=== PATIENT | male | born 1940 | race Caucasian/White ===

== ENCOUNTER → 2016-09-15 | Outpatient (CLI) | payer MEDICARE, OTHER | END | disposition home or self-care (01) | LOC: LAB.O 09:55 → RESP 10:13 | PROVIDERS: ATTEND Orthopaedic Surgery | DX: Z01.818 Encounter for other preprocedural examination (principal) ==

== ENCOUNTER → 2016-10-03 | Outpatient (CLI) | payer MEDICARE, OTHER ==
--- NOTE | 2016-10-03 10:05 | RAD ---
Four view left knee. Indication: KNEE PAIN Comparison: None. Impression: Advanced-severe medial compartment osteoarthritis with [id number] appearance and significant cortical remodeling. Less pronounced moderate to severe changes lateral compartment and moderate changes patellofemoral compartment. Small knee effusion. Osteopenia. If this is a new finding, DEXA scan recommended as well as evaluation for possible osteoporosis treatment. No acute fracture or malalignment. Electronically signed by: Pieter Naik MD 10/03/2016 10:04 AM CDT
--- NOTE | 2016-10-03 10:07 | RAD ---
EXAM DESCRIPTION: Pelvis CLINICAL HISTORY: BI LAT HIP PAIN COMPARISON: None. TECHNIQUE: AP pelvis FINDINGS: Surgical clips are observed centrally in the pelvis. Loss of joint space is observed in the left hip. Mild acetabular osteophyte formation is observed. No pelvic fracturing is observed. Minimal loss of joint space is observed in the right hip. IMPRESSION: Mild degenerative changes are observed in both hips slightly more pronounced on the left. Electronically signed by: Wayne Delvalle MD 10/03/2016 10:06 AM CDT
== END | disposition home or self-care (01) ==
LOC: RAD 08:31
PROVIDERS: ATTEND Orthopaedic Surgery
DX: M17.12 Unilateral primary osteoarthritis, left knee (principal); M16.0 Bilateral primary osteoarthritis of hip

== ENCOUNTER 2016-11-16 05:52 | Inpatient (IN) | payer MEDICARE, OTHER ==
--- NOTE | 2016-10-03 10:20 | HP ---
CHIEF COMPLAINT: Left knee pain. HISTORY OF PRESENT ILLNESS: Tom is a 75-year-old male with a history of pain in the knees bilaterally. He has had right total knee replacement. He has continued to have pain on the left side and now has exhausted conservative measures. Because of his ongoing pain, he has requested operative intervention. His pain has gotten to the point where it causes him pain on a daily basis and interferes with activities. After discussing the risks, benefits and alternatives to operative therapy, the patient has given informed consent. PAST SURGICAL HISTORY: 1. Colon surgery. 2. Right total knee replacement. MEDICATIONS: 1. Tamsulosin. 2. Simvastatin. 3. Centrum. ALLERGIES: NO KNOWN DRUG ALLERGIES. CODE STATUS: Full code. IMMUNIZATIONS: Up to date. SOCIAL HISTORY: The patient does not drink, smoke or use any illicit drugs. FAMILY HISTORY: None pertinent to today's complaint. REVIEW OF SYSTEMS: Negative except as indicated in the History of Present Illness. PHYSICAL EXAMINATION: VITAL SIGNS: Blood pressure 150/81. Pulse 85. Height 5'11". Weight 216. MENTAL STATUS: The patient is awake, alert, and is able to give a good history and participate in the physical. The patient is oriented to person, place and time. SKIN: Normal tone and turgor. HEENT: Normocephalic, atraumatic. Pupils equal, round and reactive. Mucosal membranes are moist. NECK: Normal range of motion. No thyromegaly, no lymphadenopathy. CHEST: Normal respiratory excursion. CARDIAC: Regular rate and rhythm. No murmurs, rubs or gallops. MUSCULOSKELETAL: The bilateral upper extremities show active range of motion without pain. Sensation is intact and they extremities are warm and well perfused. Strength is 5/5. Right knee shows a well-healed scar anteriorly. He has no varus/valgus or anterior/posterior laxity. Sensation intact. It is warm and well perfused. The left lower extremity shows full range of motion of the hip. Range of motion of the knee is from full extension with flexion to about 120 degrees. He has no varus/valgus or anterior/posterior laxity. He does seem to have slight varus deformity to the knee. Strength is 5/5. Sensation is intact. It is warm and well perfused. ASSESSMENT: 1. Osteoarthritis of the left knee. PLAN: The plan at this point is for total knee arthroplasty. We have discussed the risks, benefits, and alternatives to that and the patient has given informed consent. #[id number] [facility]
--- NOTE | 2016-11-12 12:20 | HP ---
CHIEF COMPLAINT: Left knee pain. HISTORY OF PRESENT ILLNESS: Tom is a 74 year-old male with a history of severe pain in the knee. The pain has been refractory to conservative measures and is affecting his daily life. Because of his ongoing pain and daily function , he has requested operative intervention. After discussing the risks, benefits , and alternatives to operative intervention, he has given informed consent for total knee arthroplasty. PAST SURGICAL HISTORY: 1. Total knee arthroplasty. 2. Colectomy. CURRENT MEDICATIONS: 1. Tamsulosin. 2. Simvastatin. 3. Vitamins. ALLERGIES: NO KNOWN DRUG ALLERGIES. CODE STATUS: FULL CODE. IMMUNIZATIONS: Up to date. FAMILY HISTORY: None pertinent to today's complaints. SOCIAL HISTORY: He does not drink, smoke or use any illicit drugs. REVIEW OF SYSTEMS: Negative except as indicated in the History of Present Illness. PHYSICAL EXAMINATION: VITAL SIGNS: Blood pressure 150/78, pulse 80, height 5' 11", weight 215. MENTAL STATUS: The patient is awake, alert, and is able to give a good history and participate in the physical. The patient is oriented to person, place and time. SKIN: Normal tone and turgor. HEENT: Normocephalic, atraumatic. Pupils equal, round and reactive. Mucosal membranes are moist. NECK: Normal range of motion. No thyromegaly, no lymphadenopathy. CHEST: Normal respiratory excursion. CARDIAC: Regular rate and rhythm. No murmurs, rubs or gallops. MUSCULOSKELETAL: The bilateral upper extremities show full active range of motion without significant pain. The extremities are warm and well perfused. There is no deformity and there is no crepitus. The right lower extremity shows a well healed wound on the anterior aspect of the knee. He has retained range of motion in the hip. Range of motion in the knee is from full extension to 120 degrees of flexion. There is no varus, valgus, anterior or posterior laxity. The left lower extremity shows lack of extension to about 5 degrees in the knee with crepitus and pain throughout his arc which includes flexion arc of about 110 degrees. There is no varus, valgus, anterior or posterior laxity. Strength is 5/5 and it is warm and well perfused. He has a slight varus deformity. X-RAYS: X-rays show severe arthritis. ASSESSMENT: 1. Arthritis of the knee. PLAN: The plan at this point is for total knee arthroplasty. We have discussed the risks, benefits, and alternatives to that and he has given informed consent for that. #[id number] [facility]
[2016-11-16] MEDS ORDERED: LACTATED RINGERS 1,000 ML ONE ×2 (05:55→06:11)
[2016-11-16] MEDS ORDERED: SODIUM CHL 0.9% 100ML MINI-BAG 100 ML IVPB ONE ×3 (05:55→07:33)
[2016-11-16] MEDS ORDERED: TRANEXAMIC ACID 1,000 MG/10 ML VIAL ONE ×2 (05:56→05:57)
[2016-11-16] MEDS ORDERED: ceFAZolin SODIUM 1 GM VIAL ONE ×4 (05:56→20:43)
[2016-11-16] MEDS ORDERED: VANCOMYCIN HCL INJ 1,000 MG VIAL IVPB ONE ×4 (05:56→18:12)
[2016-11-16] MEDS ORDERED: SODIUM CHLORIDE 0.9% 250ML 250 ML ONE ×2 (05:57→18:11)
[2016-11-16] MEDS ORDERED: MORPHINE SULF *EPIDURAL* 1 MG/ML VIAL ONE (06:10)
[2016-11-16] MEDS ORDERED: fentaNYL CITRATE INJ 50 MCG/ML AMP ONE (06:10)
[2016-11-16] MEDS ORDERED: MIDAZOLAM INJ 5 MG/5 ML VIAL ONE (06:11)
[2016-11-16] MEDS ORDERED: LIDOCAINE 2 % GEL 5 ML TUBE TOP ONE (06:11)
[2016-11-16] MEDS: ceFAZolin SODIUM 1 GM VIAL ONE ×2 (07:46→08:42)
[2016-11-16] MEDS: VANCOMYCIN HCL INJ 1,000 MG VIAL IVPB ONE ×2 (07:47→08:42)
[2016-11-16] MEDS: BUPIVACAINE 0.25% W/EPI 50 ML VIAL INJ ONE ×2 (07:47→09:10)
[2016-11-16] MEDS ORDERED: BENZOCAINE-MENTH LOZ (CEPACOL) 1 EA LOZ MT PRN (09:25)
[2016-11-16] MEDS ORDERED: MORPHINE SULFATE INJ 10 MG/ML VIAL IV PRN (09:25)
[2016-11-16] MEDS ORDERED: BISACODYL SUPPOSITORY 10 MG PR PRN (09:25)
[2016-11-16] MEDS ORDERED: TRANEXAMIC ACID INJ 1,000 MG in SODIUM CHLORIDE 0.9% 100ML 100 ML IVPB ONE (09:25)
[2016-11-16] MEDS ORDERED: PROMETHAZINE HCL INJ 12.5 MG in SODIUM CHLORIDE 0.9% 50ML 50 ML IVPB PRN (09:25)
[2016-11-16] MEDS ORDERED: PROMETHAZINE HCL INJ 25 MG in SODIUM CHLORIDE 0.9% 50ML 50 ML IVPB PRN (09:25)
[2016-11-16] MEDS ORDERED: MORPHINE SULFATE INJ 10 MG/ML VIAL IM PRN (09:25)
[2016-11-16] MEDS ORDERED: NALOXONE HCL INJ 0.4 MG/ML VIAL IV PRN (09:25)
[2016-11-16] MEDS ORDERED: ACETAMINOPHEN 500 MG TAB PO PRN (09:25)
[2016-11-16] MEDS ORDERED: ONDANSETRON INJ 4 MG/2 ML VIAL IV PRN (09:25)
[2016-11-16] MEDS ORDERED: ZOLPIDEM TARTRATE 5 MG TAB PO PRN (09:25)
[2016-11-16] MEDS ORDERED: SODIUM CHLORIDE 0.9% (FLUSH) 10 ML SYG IV PRN (09:25)
[2016-11-16] MEDS ORDERED: TEMAZEPAM 15 MG CAP PO PRN (09:25)
[2016-11-16] MEDS ORDERED: MAGNESIUM HYDROXIDE 30 ML UD PO PRN (09:25)
[2016-11-16] MEDS ORDERED: CYCLOBENZAPRINE HCL 10 MG TAB PO PRN (09:25)
[2016-11-16] MEDS ORDERED: ACETAMINOPHEN 325 MG TAB PO PRN (09:25)
[2016-11-16] MEDS ORDERED: IV SET AND CAP CHANGE INJ INJ SCH (09:30)
[2016-11-16] MEDS ORDERED: MORPHINE PCA 1 MG/ML 100ML 1 BAG in PREMIX BAG 1 BAG IVPB SCH (09:30)
[2016-11-16] MEDS ORDERED: MORPHINE PCA 1 MG/ML 100 ML BAG IVPB ONE (09:34)
[2016-11-16] MEDS ORDERED: PROPOFOL 200 MG/20 ML VIAL IV ONE (12:00)
[2016-11-16] MEDS ORDERED: NEOSTIGMINE METHYLSULFATE 1 MG/ML ML IV ONE (12:00)
[2016-11-16] MEDS ORDERED: ATROPINE SULFATE 0.4 MG/ML 1ML VIAL IV ONE (12:00)
[2016-11-16] MEDS ORDERED: SODIUM CHLORIDE 0.9% 100ML 100 ML IVPB ONE ×2 (15:10→20:43)
[2016-11-16] MEDS: DEX 5% W/NACL 0.45% 1000ML 1,000 ML IVS PRN (15:17)
[2016-11-16] MEDS: ceFAZolin SODIUM 2 GM in SODIUM CHLORIDE 0.9% 100ML 100 ML IVPB SCH (16:32)
[2016-11-16] MEDS: VANCOMYCIN HCL INJ 1,000 MG in SODIUM CHLORIDE 0.9% 250ML 250 ML IVPB SCH (18:52)
[2016-11-16] MEDS ORDERED: TAMSULOSIN 0.4 MG CAP ONE (20:42)
[2016-11-16] MEDS ORDERED: SIMVASTATIN 20 MG TAB ONE (20:43)
[2016-11-16] MEDS: DOCUSATE CALCIUM 240 MG CAP PO SCH (21:08)
[2016-11-16] MEDS: TAMSULOSIN 0.4 MG CAP PO SCH (21:08)
[2016-11-16] MEDS: SIMVASTATIN 20 MG TAB PO SCH (21:08)
[2016-11-16] MEDS: ENOXAPARIN SODIUM 30 MG/0.3 ML SYG SUBCU SCH (21:08)
[2016-11-16] MEDS: ALUMINUM & MAGNESIUM HYDROXIDE 30 ML UD PO PRN (22:06)
[2016-11-17] MEDS: ceFAZolin SODIUM 2 GM in SODIUM CHLORIDE 0.9% 100ML 100 ML IVPB SCH ×2 (00:03→08:07)
[2016-11-17] MEDS ORDERED: SODIUM CHLORIDE 0.9% 250ML 250 ML ONE (06:16)
[2016-11-17] MEDS ORDERED: VANCOMYCIN HCL INJ 1,000 MG VIAL IVPB ONE (06:16)
[2016-11-17] MEDS: VANCOMYCIN HCL INJ 1,000 MG in SODIUM CHLORIDE 0.9% 250ML 250 ML IVPB SCH (06:38)
[2016-11-17] MEDS ORDERED: ceFAZolin SODIUM 1 GM VIAL ONE (07:59)
[2016-11-17] MEDS ORDERED: SODIUM CHLORIDE 0.9% 100ML 100 ML IVPB ONE (07:59)
--- NOTE | 2016-11-17 08:10 | RAD ---
EXAM DESCRIPTION: Knee,Left 2 or More Views CLINICAL HISTORY: 76 years, Male, TKA COMPARISON: October 03, 2016 TECHNIQUE: Two views of the left knee FINDINGS: Interval total knee replacement is noted in place with the soft tissue swelling and postoperative changes evident with apparent telida the patellar articular surface and evident without a patellar articular prosthesis noted. Postoperative soft tissue gas medially is apparent. IMPRESSION: 1. Satisfactory left total knee replacement with metallic femoral and tibial components in satisfactory alignment and good apposition to the underlying bone. Electronically signed by: Juan Reid MD 11/17/2016 8:10 AM CDT
[2016-11-17] MEDS: HYDROcodone 5MG/APAP 325MG 1 EA TAB PO PRN ×2 (08:12→14:54)
--- NOTE | 2016-11-17 09:05 | PN ---
DATE: 11/17/16 SUBJECTIVE: Mr. Damian is doing well and has no significant pain. OBJECTIVE: Afebrile. Vital signs stable. Dressing is clean, dry and intact. ASSESSMENT: Status post total knee arthroplasty. PLAN: The plan at this point is for him to begin weight-bearing as tolerated today. We will progress his therapy as tolerated and we will discharge him when he meets all goals. #[id number] [facility]
[2016-11-17] MEDS: MAGNESIUM OXIDE 400 MG TAB PO SCH (09:35)
[2016-11-17] MEDS: rifAMPin 300 MG CAP PO SCH (09:35)
[2016-11-17] MEDS: ENOXAPARIN SODIUM 30 MG/0.3 ML SYG SUBCU SCH ×2 (09:35→21:20)
--- NOTE | 2016-11-17 09:49 | OP ---
DATE OF PROCEDURE: 11/16/16 PREOPERATIVE DIAGNOSIS: 1. Left knee osteoarthritis. POSTOPERATIVE DIAGNOSIS: 1. Left knee osteoarthritis. PROCEDURE: 1. Left total knee arthroplasty. SURGEON: Javon Valencia MD. RUBBER STAMP DIE INSPECTOR: Arsenio Bhatti CST, SA-C. ANESTHESIA: General. COMPLICATIONS: None. FINDINGS: Severe arthritis with varus deformity. INDICATION: Mr. Damian has a history of severe arthritis that has been refractory to conservative measures. Because of the refractory nature of his arthritis, he has requested operative intervention. After discussing the risks , benefits and alternatives to that, the patient has given informed consent for total knee arthroplasty. PROCEDURE: The patient was brought to the Operating Room and placed in supine position. General anesthesia was induced and the patient's leg was sterilely prepped and draped. Following prepping and draping, the distal femur was exposed and using an intramedullary guide, the distal femoral cut was made. The appropriate sized cutting block was measured, pinned into place, and the anterior, posterior, and chamfer cuts were made. The ACL was transected and the tibia was subluxed. Both the medial and lateral menisci were removed. An intramedullary guide was used to make the proximal tibial cut. The appropriate sized base plate was placed and a trial polyethylene was placed. The trial femur was placed, the knee was reduced, and the knee was taken through a range of motion. The knee was stable in anterior, posterior, varus and valgus stress. The patella tracked anatomically without evidence of subluxation or dislocation. After trialing, the trial components were removed and the bony surfaces were thoroughly irrigated with saline. Following irrigation, the surfaces were dried and the final components were cemented into place. The excess cement was removed and the remaining cement was allowed to cure. The knee was again taken through a range of motion to confirm stability. The wound was then irrigated with saline and closure was performed using PDS to approximate the arthrotomy followed by closure of the subcutaneous tissues with a combination of running and interrupted Monocryl sutures. Sterile dressing was placed. The patient was awoken from anesthesia and taken to Recovery. POSTOPERATIVE INSTRUCTIONS: The patient will be weight-bearing as tolerated on postoperative day 1. COMPONENTS: [employer] Triathlon knee, size 5 femur, size 5 tibia, 11 mm insert. #[id number] [facility]
--- NOTE | 2016-11-17 20:43 | CONS ---
DATE OF CONSULTATION: 11/16/16 SUPERVISING PHYSICIAN: Juan Coe M.D. CHIEF COMPLAINT: Left knee pain. HISTORY OF PRESENT ILLNESS: This is a 74 year-old male patient who lives in [place]. He has a history of severe left knee pain. He has attempted conservative measures and due to the ongoing pain and daily function, he has requested operative intervention from Dr. Javon Valencia, orthopedic surgeon. The surgery was performed earlier today and I am seeing him postoperatively on the Medical/Surgical floor. PAST MEDICAL HISTORY: 1. Benign prostatic hypertrophy. 2. Hyperlipidemia. 3. Osteoarthritis. PAST SURGICAL HISTORY: 1. Right total knee arthroplasty. 2. Colectomy. HOME MEDICATIONS: 1. Rifampin. 2. Tamsulosin. 3. Simvastatin. 4. Multivitamins. ALLERGIES: NO KNOWN DRUG ALLERGIES. FAMILY HISTORY: SOCIAL HISTORY: He is and lives in [place]. His primary care physician is Dr. Torres in [place]. He denies any tobacco use, ETOH or illicit drug use. REVIEW OF SYSTEMS: GENERAL: Denies fatigue, fever or weight changes. HEENT: Denies sinus symptoms, ear pain, vision changes or sore throat. RESPIRATORY: Denies coughing, wheezing or shortness of breath. CARDIAC: Denies chest pain, palpitations or tachycardia. ABDOMEN: Denies abdominal pain, nausea, vomiting, constipation or diarrhea. MUSCULOSKELETAL: As per the History of Present Illness. SKIN: Denies lesions or rashes. NEUROLOGIC: Denies dizziness, headaches or seizures. PHYSICAL EXAMINATION: VITAL SIGNS: Temperature 99, heart rate 85, blood pressure 130/72, respiratory rate 20, O2 sat 98%. GENERAL: This is a 76 year-old male patient who is lying in his hospital bed. He is somewhat drowsy postoperatively. HEENT: Normocephalic and atraumatic. Pupils are equal and reactive. Oropharynx is clear. NECK: Supple without mass. CHEST: Clear to auscultation bilaterally. HEART: Regular rate and rhythm. ABDOMEN: Soft, nondistended, non-tender. Bowel sounds are positive. EXTREMITIES: He has a dressing with an Iceman to his left knee area. The dressing is dry and intact. His bilateral pedal pulses are palpable. There is no cyanosis or edema noted to the bilateral pedal area. NEUROLOGIC: He is somewhat lethargic but he awakens easily and he answers questions appropriately. He is oriented times three. LABORATORY: There are no labs to report today. RADIOLOGY: X-rays were reviewed via the EMR. ASSESSMENT: 1. Postoperative day zero status post left total knee arthroplasty. 2. Benign prostatic hypertrophy. 3. Hyperlipidemia. PLAN: We will monitor the patient and continue present supportive care. His orthopedic issues will be per Dr. Valencia, orthopedic surgeon. He will do his strengthening and conditioning with Physical Therapy. I restarted his home medications. I have encouraged good pulmonary hygiene. We will monitor the patient closely and follow as needed. Dr. Coe is the collaborating physician and available for consultation. #[id number] [facility]
[2016-11-17] MEDS: DOCUSATE CALCIUM 240 MG CAP PO SCH (21:19)
[2016-11-17] MEDS: DEX 5% W/NACL 0.45% 1000ML 1,000 ML IVS PRN (21:19)
[2016-11-17] MEDS: SIMVASTATIN 20 MG TAB PO SCH (21:20)
[2016-11-17] MEDS: TAMSULOSIN 0.4 MG CAP PO SCH (21:20)
--- NOTE | 2016-11-17 21:39 | PN ---
DATE: 11/17/16 SUPERVISING PHYSICIAN: Juan Coe M.D. SUBJECTIVE: The patient is lying in his bed. He has a CPM machine on his left knee. He has no complaints of shortness of breath, chest pain, nausea or vomiting. His pain is being well controlled at this time. OBJECTIVE: VITAL SIGNS: His temperature is 99 although he did run 100.3 overnight, heart rate 92, blood pressure 126/73, respiratory rate 16, O2 sat is 95%. RESPIRATORY: Clear to auscultation bilaterally. CARDIAC: Regular rate and rhythm. ABDOMEN: Soft, nondistended, non-tender. Bowel sounds are positive. EXTREMITIES: He has the CPM to his left knee. His dressing is dry and intact. Bilateral pedal pulses are palpable +2. NEUROLOGIC: He is awake, alert and oriented times three. LABORATORY: Hemoglobin 14, hematocrit 40.4. There are no other labs or films to report. ASSESSMENT: 1. Postoperative day number 1 status post left total knee arthroplasty per Dr. Javon Valencia, orthopedic surgeon. 2. Benign prostatic hypertrophy. 3. Hyperlipidemia. PLAN: We will continue present supportive care. His orthopedic issues will be per Dr. Valencia. He will continue his physical therapy for strengthening and conditioning. His temperature was up overnight and I have encouraged continued use of incentive spirometry as well as continued good pulmonary hygiene. Meanwhile, we will continue to monitor the patient closely and followup as needed. Dr. Coe is the collaborating physician and available for consultation. #[id number] [facility]
[2016-11-18] MEDS: ALUMINUM & MAGNESIUM HYDROXIDE 30 ML UD PO PRN (08:07)
[2016-11-18] MEDS: HYDROcodone 5MG/APAP 325MG 1 EA TAB PO PRN (08:07)
[2016-11-18] MEDS ORDERED: SODIUM CHLORIDE 0.9% (FLUSH) 10 ML SYG IV SCH (09:00)
[2016-11-18] MEDS: ENOXAPARIN SODIUM 30 MG/0.3 ML SYG SUBCU SCH (09:28)
[2016-11-18] MEDS: MAGNESIUM OXIDE 400 MG TAB PO SCH (09:28)
[2016-11-18] MEDS: rifAMPin 300 MG CAP PO SCH (09:28)
--- NOTE | 2016-11-18 11:22 | PN ---
DATE: 11/18/16 SUBJECTIVE: Tom is doing well. He has pain control. He has successfully met his goals with physical therapy. OBJECTIVE: Afebrile. Vital signs stable. Wound is clean. There are no signs or symptoms of infection. ASSESSMENT: Status post total knee arthroplasty. PLAN: At this point, he is going to be discharged with outpatient physical therapy. He will followup with us in about two weeks. He has been instructed to return immediately should any change in his condition occur. #[id number] [facility]
[2016-11-18 14:22] VITALS: BP 127/62; TEMP 98.9; O2SAT 95
[2016-11-19] MEDS ORDERED: MAGNESIUM HYDROXIDE 30 ML UD PO ONE (21:00)
[2016-11-19] MEDS ORDERED: BISACODYL SUPPOSITORY 10 MG PR ONE (21:00)
--- NOTE | 2016-11-23 10:02 | DS ---
SUPERVISING PHYSICIAN: Lyndsey Coe MD DISCHARGE DIAGNOSIS: 1. Postoperative day 2 status post left total knee arthroplasty per Dr. Javon Valencia, orthopedic surgeon. 2. Benign prostatic hypertrophy. 3. Hyperlipidemia. HISTORY OF PRESENT ILLNESS: This is a 76-year-old male patient who was admitted to the hospital on 11/16/16. He lives in [place] and has a history of severe left knee pain. He did attempt conservative measures, but due to his ongoing pain and decrease in daily function, he had requested operative intervention from Dr. Javon Valencia, orthopedic surgeon. He had a left total knee arthroplasty done on the date of admission. He had no intraoperative complications. HOSPITAL COURSE: I saw him postoperatively on the Floor. His recovery was without any major incidences. He was followed by physical therapy for strengthening and conditioning. Today, he has met the requirements for discharge. DISCHARGE PLAN: The patient will be discharged home to [place]. He is to followup with his primary care physician as well as Dr. Valencia on 12/02/16. He is to resume his previous diet and to increase his activity as per physical therapy. He will be discharged with [facility]. He is to call Dr. Valencia 's office or return to the hospital for any further complications or problems. DISCHARGE MEDICATIONS: 1. Flomax. 2. Simvastatin. 3. Multivitamins with minerals. 4. Rifampin. 5. Cyclobenzaprine. 6. Hydrocodone. 7. Xarelto for [address] Coe is the collaborating physician and available for consultation. #[id number] [facility]
== END 2016-11-18 12:35 | disposition home health service (06) | DRG 470 ==
LOC: CANPRESDC → AMB 05:52 → MS 10:14
PROVIDERS: ADMIT Orthopaedic Surgery; ATTEND Nurse Practitioner Acute Care
PROC: 0SRD0J9 Replacement of Left Knee Joint with Synthetic Substitute, Cemented, Open Approach (ICD-10-PCS; principal; 2016-11-16 06:54)
DX: M17.12 Unilateral primary osteoarthritis, left knee (principal); Z96.651 Presence of right artificial knee joint; N40.0 Benign prostatic hyperplasia without lower urinary tract symptoms; E78.5 Hyperlipidemia, unspecified; Z79.899 Other long term (current) drug therapy

== ENCOUNTER → 2017-03-02 | Outpatient (CLI) | payer MEDICARE, OTHER ==
--- NOTE | 2017-03-03 08:48 | RAD ---
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 Moderate osteoarthritis of STT. Positive ulnar variance. 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 Flattening, and minimal lucency in the ulnar side lunate likely degenerative cystic change. 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 Electronically signed by: Juan Licona MD 03/03/2017 8:47 AM CDT
== END | disposition home or self-care (01) ==
LOC: RAD 07:46
PROVIDERS: ATTEND Orthopaedic Surgery
DX: M19.142 Post-traumatic osteoarthritis, left hand (principal)